=== PATIENT | female | born 1970 | race Caucasian/White ===

== ENCOUNTER 2021-05-07 21:50 | Emergency (ER) | payer OTHER, SELFPAY ==
[2021-05-07 23:03] LABS: #Eosinphils 0.2 10x3/uL (0.0-0.5); #Monocytes 0.6 10x3/uL (0.0-1.1); #Neutrophils 3.3 10x3/uL (1.5-8.4); %Basophils 0.7 % (0.0-2.0); %Eosinophils 3.6 % (0.0-6.0); %Lymphocytes 25.8 % (18.0-47.0); %Monocytes 10.7 % (0.0-10.0); %Neutrophils 58.7 % (40.0-75.0); Mean Corpuscular HGB CONC 32.3 g/dL (32.0-36.0); Mean Corpuscular Hemoglobin 30.2 pg (27.0-33.0); Mean Corpuscular Volume 93.5 fl (81.6-98.3); Mean Platelet Volume 11.4 fl (7.4-10.4); Platelet Count 211 10x3/uL (150-450); RBC Distribution Width 12.3 % (11.5-14.5); Red Blood Cell (RBC) Count 4.31 10x6/uL (3.90-5.03); White Blood Cell (WBC) Count 5.6 10x3/uL (3.5-10.5)
[2021-05-07 23:12] LABS: ALT (SGPT) 11 U/L (8-55); AST (SGOT) 15 U/L (5-34); Albumin 4.4 g/dL (3.5-5.0); Alkaline Phosphatase 38 U/L (40-110); Anion Gap 11 mmol/L (10-20); BUN (Urea Nitrogen) 13 mg/dL (7.0-18.7); Bilirubin, Total 0.2 mg/dL (0.2-1.2); Calc. Creatinine Clearance 0 mL/min (70-130); Calcium 9.6 mg/dL (7.8-10.44); Carbon Dioxide 27 mmol/L (22-29); Chloride 104 mmol/L (98-107); Globulin 2.8 g/dL (2.4-3.5); Glucose 106 mg/dL (70-105); Potassium 3.7 mmol/L (3.5-5.1); Protein, Total 7.2 g/dL (6.0-8.3); Sodium 138 mmol/L (136-145)
[2021-05-07 23:46] LABS: Bilirubin Neg (Negative); Blood, Urine 10 (Negative); Clarity Clear (Clear); Glucose, Urine (Dipstick) Normal (Negative); Ketone, Urine Negative (Negative); Leukocyte 25 (Negative); Nitrite Negative (Negative); Protein, Urine (Dipstick) Negative (Neg-Trace); Specific Gravity, Urine 1.015 (1.002-1.036); Urobilinogen Normal mg/dL (Less than 2)
[2021-05-08] LABS: Squamous Epithelial 0-3 HPF (0-3)
[2021-05-08 00:01] LABS: Bacteria/HPF Rare-Few HPF (None Seen)
== END 2021-05-08 01:04 | disposition home or self-care (01) ==
LOC: CSHERS 21:50
DX: T19.2XXA Foreign body in vulva and vagina, initial encounter (principal); R07.89 Other chest pain
CPT/HCPCS: 71045; 71275; 80053; 81003; 81015; 83605; 84484; 85025; 85379; 93005

== ENCOUNTER 2023-10-08 14:43 | Outpatient (CLI) | payer OTHER | END 2023-10-08 14:44 | disposition home or self-care (01) | LOC: CSHMAMMO 14:43 | PROVIDERS: ATTEND Family Medicine | DX: Z13.820 Encounter for screening for osteoporosis (principal); M81.0 Age-related osteoporosis without current pathological fracture; M85.88 Other specified disorders of bone density and structure, other site; Z78.0 Asymptomatic menopausal state | CPT/HCPCS: 77080 ==